=== PATIENT | female | born 1955 | race Hispanic/Latino ===

== ENCOUNTER 2022-01-20 10:51 | Day surgery (SDC) | payer MEDICARE ==
[~2022-01-20 10:51] MED LIST: SODIUM CHLORIDE 0.9% 1000 ML 1,000 ML IV SCH
[2022-01-20] MEDS ORDERED: LIDOCAINE MPF (2%) 20 MG/1 ML VIAL 5 ML ONE (11:30)
--- NOTE | 2022-01-20 11:32 | Anesthesia Day of Surgery ---
Anesthesia Day of Surgery - Day of Surgery Patient Examined: Yes Patient H&P Reviewed: Yes Patient is NPO: Yes
--- NOTE | 2022-01-20 11:32 | Anesthesia Consultation ---
Anesthesia Consult and Med Hx Date of service: 01/20/22 - Airway Anesthetic Teeth Evaluation: Good (veneers) ROM Head & Neck: Adequate Mental/Hyoid Distance: Adequate Mallampati Class: Class III Intubation Access Assessment: Possibly Difficult - Pre-Operative Health Status ASA Pre-Surgery Classification: ASA1 Proposed Anesthetic Plan: MAC - Pulmonary Hx Smoking: No Hx Respiratory Symptoms: No - Cardiovascular System Hx Hypertension: No Hx Heart Attack/AMI: No Hx Percutaneous Transluminal Coronary Angioplasty (PTCA): No - Central Nervous System CVA: No - Gastrointestinal Hx Gastroesophageal Reflux Disease: Yes - Endocrine Hx Renal Disease: No Hx Liver Disease: No Hx Insulin Dependent Diabetes: No Hx Non-Insulin Dependent Diabetes: No Hx Thyroid Disease: No - Other Systems Hx Obesity: No - Additional Comments Anesthesia Medical History Comments: No hx anesthetic complications.
[2022-01-20] MEDS ORDERED: propofoL 200 MG/20 ML VIAL IV ONE ×2 (12:51→13:07)
--- NOTE | 2022-01-20 13:22 | Procedure Note ---
Date of procedure: 01/20/22 Pre-op diagnosis: EGD with Biopsy and esophageal balloon dilation (20 mm Balloon) Post-op diagnosis: other (Mild, Benign Esophageal Stenosis (s/p balloon dilation-20 mm)/Mild to Moderate Erosive Esophagitis/ R/O Eosinophilic Esophagitis/Gastritis/ No Peptic Ulcer disease noted) Procedure: EGD with Cold biopsy and Esophageal Balloon Dilation (20 m) Anesthesia: MAC Surgeon: HUMBERTO OSHEA Estimated blood loss: minimal Specimen disposition: to lab Condition: stable Disposition: same day (Treat with PPI, prn Reglan; avoid aspirin and NSAID for 5 days, otherwise resume previous medication and F/U in 1 to 2 weeks ([phone]).)
[2022-01-20 14:47] VITALS: BP 133/67
--- NOTE | 2022-01-20 14:50 | Operative Report ---
DATE OF SURGERY: 01/20/2022 PROCEDURE: EGD with biopsy and esophageal balloon dilation. INDICATIONS: This is a 66-year-old white female in otherwise good health, who has lately been having problem with dysphagia and GERD symptoms. EGD was done to assess for the problem. DESCRIPTION OF PROCEDURE: Procedure was done after getting informed consent with MAC anesthesia. The instrument was passed through the hypopharynx into the esophagus, which showed [id number] distal erosive esophagitis as well as mild benign esophageal stenosis. The esophagus was dilated with a 20 mm balloon that was maintained for a minute at the end of the procedure. Biopsy was done from the distal esophagus to assess for the severity of the erosive esophagitis and from the mid esophagus to rule out for eosinophilic esophagitis. The patient also had antral gastritis and erosion that was noted in patent pylorus with duodenum in the first and second portion being normal. Biopsy was done from the second part to rule out for possible celiac disease. Additional biopsy was done from the gastric antrum and gastric body as well as angular incisura to assess for H. pylori gastritis and atrophic gastritis. There was minimal bleeding associated with the procedure. No peptic ulcer disease was noted either within the gastric or the duodenal lumen. ASSESSMENT: Dysphagia, mild benign esophageal stenosis, status post balloon dilation with a 20 mm balloon that was done at the end of the procedure. Mild to moderate erosive esophagitis, rule out eosinophilic esophagitis, gastritis, gastric erosion. No peptic ulcer disease noted. Rule out celiac disease. PLAN: To treat the patient with PPI and also to place the patient on Reglan if needed for her dysphagia. The patient will be asked to avoid aspirin and aspirin-related products for the next few days and follow up in the office in 1-2 weeks' time. If the patient is positive for H. pylori, the patient will be treated for that. Procedure was done in the GI lab with assistance of the GI lab team, which included the GI nurse, the member of technical staff and with assistance of anesthesia. TID: [id number] RECEIPT: [id number] AMARI/CHELSEA
--- NOTE | 2022-01-20 16:50 | Post Anesthesia Evaluation ---
- Post Anesthesia Evaluation Patient Participated: Yes Airway Patent: Yes Stable Respiratory Function: Yes Nausea/Vomiting: No Temp > 96.8F: Yes Pain Manageable: Yes Adequeate Hydration: Yes Anesthesia Complications: No
== END 2022-01-20 13:50 | disposition home or self-care (01) ==
LOC: GIO 10:51
DX: R13.10 Dysphagia, unspecified (principal); K22.2 Esophageal obstruction; K21.00 Gastro-esophageal reflux disease with esophagitis, without bleeding; K29.70 Gastritis, unspecified, without bleeding; Z88.5 Allergy status to narcotic agent; Z88.8 Allergy status to other drugs, medicaments and biological substances; Z79.899 Other long term (current) drug therapy; Z90.710 Acquired absence of both cervix and uterus
CPT/HCPCS: 43239; 43249; 88305; C1726; J2704; J3490; J7030; J7120; Q0162